=== PATIENT | male | born 1950 | race Hispanic/Latino ===

== ENCOUNTER 2017-09-20 05:51 | Emergency (ER) | payer MEDICARE ==
[2017-09-20 11:01] LABS: Basophils % (Auto) 0.3 % (0.0-1.8); Eosinophils # (Auto) 0.1 K/mm3 (0.0-0.4); Eosinophils % (Auto) 1.5 % (0.0-4.3); Lymphocytes # (Auto) 2.5 K/mm3 (1.2-5.4); Lymphocytes % (Auto) 27.4 % (13.4-35.0); Mean Corpuscular HGB Conc 35 % (32-34); Mean Corpuscular Hemoglobin 34 pg (28-32); Mean Corpuscular Volume 96 fl (84-94); Monocytes # (Auto) 0.8 K/mm3 (0.0-0.8); Monocytes % (Auto) 8.4 % (0.0-7.3); Platelet Count 213 K/mm3 (140-440); Red Blood Count 4.18 M/mm3 (3.65-5.03); Red Cell Distribution Width 13.6 % (13.2-15.2)
[2017-09-20 11:14] LABS: BUN/Creatinine Ratio 13; Blood Urea Nitrogen 9 mg/dL (9-20); Calcium 9.1 mg/dL (8.4-10.2); Hemolysis Index 68
--- NOTE | 2017-09-20 11:19 | Emergency Department Report ---
ED Extremity Problem HPI - General Chief complaint: Extremity Problem,Nontraumatic Stated complaint: LEG CRAMP Time Seen by Provider: 09/20/17 10:27 Source: patient Mode of arrival: Ambulatory Limitations: No Limitations - History of Present Illness Initial comments: 67 year old male with a past medical history of diabetes (takes oral medication) , hypertension, chronic leg cramps, smoking history presents to the hospital complaints of worsening cramping to bilateral calves last night. Muscle spasms and cramps was so intense it was causing involuntary flexion of his ankle. Patient has had similar symptoms in the past but it was worse last night. Pain is currently 6/10 in intensity and worse with palpation to each calf. He states he knows he has poor blood flow to his extremities and they typically have difficulty palpating his pulse. He denies being on any antiplatelet therapy or diuretics. Pt is homeless. - Related Data Previous Rx's Medication Instructions Recorded Last Taken Type Aspirin [Aspirin TAB] 325 mg PO DAILY #30 tablet 09/20/17 Unknown Rx Allergies Allergy/AdvReac Type Severity Reaction Status Date / Time No Known Allergies Allergy Unverified 09/20/17 07:29 ED Review of Systems ROS: Stated complaint: LEG CRAMP Other details as noted in HPI Comment: All other systems reviewed and negative ED Past Medical Hx - Past Medical History Hx Hypertension: Yes Hx Diabetes: Yes Additional medical history: hx of depression. - Surgical History Past Surgical History?: No - Social History Smoking Status: Current Every Day Smoker Substance Use Type: Marijuana - Medications Home Medications: Home Medications Medication Instructions Recorded Confirmed Last Taken Type Aspirin [Aspirin TAB] 325 mg PO DAILY #30 tablet 09/20/17 Unknown Rx ED Physical Exam - General Limitations: No Limitations - Other Other exam information: General: No limitations, patient is alert in no acute distress Head exam: Atraumatic, normocephalic Eyes exam: Normal appearance ENT: Moist mucous membrane, normal oropharynx Neck exam: Normal inspection, full range of motion, no meningismus nontender Respiratory exam: Clear to auscultation bilateral, no wheezes, rales, crackles Cardiovascular: Normal rate and rhythm, normal heart sounds Abdomen: Soft, nondistended, and nontender, with normal bowel sounds, no rebound, or guarding Extremity: Full range of motion, no deformity, no edema. Bilateral calf tenderness without leg asymmetry. Unable to palpate DP or PT pulses however, they are dopplerable. No current muscle spasm noted Back: Normal Inspection, full range of motion, no tenderness Neurologic: Alert, oriented x3, cranial nerves intact, no motor or sensory deficit Psychiatric: normal affect, normal mood Skin: Warm, dry, intact ED Course Vital Signs 09/20/17 07:25 Temperature 97.1 F L Pulse Rate 75 Respiratory 16 Rate Blood Pressure 161/72 O2 Sat by Pulse 98 Oximetry ED Medical Decision Making - Lab Data Result diagrams: 09/20/17 10:46 09/20/17 10:46 Lab Results 09/20/17 09/20/17 Range/Units 10:46 10:46 WBC 9.2 (4.5-11.0) K/mm3 RBC 4.18 (3.65-5.03) M/mm3 Hgb 14.0 (11.8-15.2) gm/dl Hct 40.0 (35.5-45.6) % MCV 96 H (84-94) fl MCH 34 H (28-32) pg MCHC 35 H (32-34) % RDW 13.6 (13.2-15.2) % Plt Count 213 (140-440) K/mm3 Lymph % (Auto) 27.4 (13.4-35.0) % Sibley % (Auto) 8.4 H (0.0-7.3) % Eos % (Auto) 1.5 (0.0-4.3) % Baso % (Auto) 0.3 (0.0-1.8) % Lymph # 2.5 (1.2-5.4) K/mm3 S[place]y # 0.8 (0.0-0.8) K/mm3 Eos # 0.1 (0.0-0.4) K/mm3 Baso # 0.0 (0.0-0.1) K/mm3 Seg Neutrophils % 62.4 (40.0-70.0) % Seg Neutrophils # 5.7 (1.8-7.7) K/mm3 Sodium 136 L (137-145) mmol/L Potassium 4.4 (3.6-5.0) mmol/L Chloride 92.7 L (98-107) mmol/L Carbon Dioxide 29 (22-30) mmol/L Anion Gap 19 mmol/L BUN 9 (9-20) mg/dL Creatinine 0.7 L (0.8-1.5) mg/dL Estimated GFR > 60 ml/min BUN/Creatinine Ratio 13 % Glucose 157 H (75-100) mg/dL Calcium 9.1 (8.4-10.2) mg/dL Magnesium 2.10 (1.7-2.3) mg/dL Total Creatine Kinase 144 (55-170) units/L - Medical Decision Making I suspect symptoms are chronic secondary to poor vascular flow. Although patient does not have palpable pulses they are present with Doppler. Patient takes cholesterol medication, a diabetic, and he states he "loves to smoke cigarettes" and has been a stoner since he was teenager. Patient has several risk factors for PAD and claudication. Outpatient vascular and PMD follow-up will be encouraged. An aspirin daily would be recommended and provided prior to d/c. - Differential Diagnosis muscle spasm, electrolyte abnormality, claudication, PAD Critical Care Time: No Critical care attestation.: If time is entered above; I have spent that time in minutes in the direct care of this critically ill patient, excluding procedure time. ED Disposition Clinical Impression: Nocturnal leg cramps, PAD (peripheral artery disease), Smoking, Diabetes, Hyperlipemia, HTN (hypertension), Homeless Disposition: TO HOME OR SELFCARE Is pt being admited?: No Does the pt Need Aspirin: No Condition: Stable Instructions: Leg Cramps (ED), Peripheral Artery Disease (ED) Additional Instructions: Take aspirin daily with food. Follow-up with your primary care doctor, the doctor provided, and a vascular doctor for further workup and evaluation of the leg symptoms. Return symptoms worsen as indicated by her discharge instructions Prescriptions: Aspirin [Aspirin TAB] 325 mg PO DAILY #30 tablet Referrals: WALLY SILAV MD [Primary Care Provider] - 3-5 Days [facility] [Provider Group] - 3-5 Days MARSHA ALVARADO MD [Staff Physician] - 3-5 Days DAVID CAPPS MD [Staff Physician] - 3-5 Days Time of Disposition: 11:29
[2017-09-20] MEDS ORDERED: ASPIRIN PO ONE (11:25)
[2017-09-20 11:41] VITALS: BP 134/58
== END 2017-09-20 11:49 | disposition home or self-care (01) ==
LOC: ED 05:51
DX: I73.9 Peripheral vascular disease, unspecified (principal); M79.605 Pain in left leg; M79.604 Pain in right leg; E11.9 Type 2 diabetes mellitus without complications; I10 Essential (primary) hypertension; F17.200 Nicotine dependence, unspecified, uncomplicated; Z59.0 Homelessness
CPT/HCPCS: 36415; 80048; 82550; 82962; 83735; 85025